=== PATIENT | male | born 1950 | race Caucasian/White ===

== ENCOUNTER 2018-05-15 08:00 | Outpatient (CLI) | payer OTHER ==
[2018-05-15 14:27] LABS: BASOPHILS # (AUTO) 0.1 10^3/uL (0.0-0.1); BASOPHILS % (AUTO) 0.9 %; EOSINOPHILS # (AUTO) 0.6 10^3/uL (0.0-0.7); EOSINOPHILS % (AUTO) 4.9 %; HGB - HEMOGLOBIN 14.2 g/dL (14.0-18.0); LYMPHOCYTES # (AUTO) 2.6 10^3/uL (1.5-3.5); LYMPHOCYTES % (AUTO) 21.4 %; MEAN CORPUSCULAR HEMOGLOBIN 29.8 pg (27.0-31.0); MEAN CORPUSCULAR HGB CONC 33.6 g/dL (32.0-36.0); MEAN CORPUSCULAR VOLUME 88.8 fL (80.0-94.0); MEAN PLATELET VOLUME 9.6 fL (7.4-11.4); MONOCYTES # (AUTO) 1.1 10^3/uL (0.0-1.0); MONOCYTES % (AUTO) 9.5 %; NEUTROPHILS # (AUTO) 7.7 10^3/uL (1.5-6.6); NEUTROPHILS % (AUTO) 63.3 %; PLT - PLATELET COUNT 360 10^3/uL (130-450); RED BLOOD COUNT 4.74 10^6/uL (4.70-6.10); RED CELL DISTRIBUTION WIDTH 12.3 % (12.0-15.0); WHITE BLOOD COUNT 12.1 x10^3/uL (4.8-10.8)
[2018-05-15 14:50] LABS: ALBUMIN 4.3 g/dL (3.2-5.5); ALBUMIN/GLOBULIN RATIO 1.2 (1.0-2.2); ALKALINE PHOSPHATASE 84 IU/L (42-121); ALT ALANINE AMINOTRANSFERASE 21 IU/L (10-60); AST ASPARTATE AMINOTRANSFERASE 23 IU/L (10-42); BILIRUBIN,TOTAL 1.3 mg/dL (0.2-1.0); BUN - BLOOD UREA NITROGEN 27 mg/dL (6-20); CALCIUM 9.4 mg/dL (8.5-10.3); CARBON DIOXIDE - CO2 26 mmol/L (21-32); CHLORIDE 100 mmol/L (101-111); CHOL/HDL RATIO 5.9 (<5.0); CHOLESTEROL 206 mg/dL; CREATININE 1.1 mg/dL (0.6-1.2); GFR - MDRD 67 (>89); GLUCOSE 114 mg/dL (70-100); HDL CHOLESTEROL 35 mg/dL; LDL CHOLESTEROL,CALCULATED 156 mg/dL; LDL/HDL RATIO 4.5 (<3.6); SODIUM 135 mmol/L (135-145); TOTAL PROTEIN 7.8 g/dL (6.7-8.2); VLDL CHOLESTEROL 15 mg/dL
== END 2018-05-15 23:59 ==
LOC: LAB.WCP 08:00
PROVIDERS: ATTEND Family Medicine
DX: I10 Essential (primary) hypertension (principal); R73.9 Hyperglycemia, unspecified; E78.5 Hyperlipidemia, unspecified
CPT/HCPCS: 36415; 80053; 80061; 83721; 84153; 84443; 85025

== ENCOUNTER 2018-05-28 08:31 | Outpatient (CLI) | payer MEDICARE, OTHER ==
[2018-05-28 14:41] LABS: BASOPHILS # (AUTO) 0.1 10^3/uL (0.0-0.1); BASOPHILS % (AUTO) 0.8 %; EOSINOPHILS # (AUTO) 0.8 10^3/uL (0.0-0.7); EOSINOPHILS % (AUTO) 7.4 %; HGB - HEMOGLOBIN 13.4 g/dL (14.0-18.0); LYMPHOCYTES # (AUTO) 2.2 10^3/uL (1.5-3.5); MEAN CORPUSCULAR HGB CONC 33.8 g/dL (32.0-36.0); MEAN CORPUSCULAR VOLUME 88.7 fL (80.0-94.0); MEAN PLATELET VOLUME 9.8 fL (7.4-11.4); MONOCYTES % (AUTO) 9.1 %; NEUTROPHILS # (AUTO) 7.3 10^3/uL (1.5-6.6); NEUTROPHILS % (AUTO) 63.7 %; PLT - PLATELET COUNT 326 10^3/uL (130-450); RED BLOOD COUNT 4.46 10^6/uL (4.70-6.10); RED CELL DISTRIBUTION WIDTH 12.3 % (12.0-15.0); WHITE BLOOD COUNT 11.5 x10^3/uL (4.8-10.8)
== END 2018-05-28 23:59 | disposition home or self-care (01) ==
LOC: LAB.WCP 08:31
PROVIDERS: ATTEND Family Medicine
DX: D72.829 Elevated white blood cell count, unspecified (principal)
CPT/HCPCS: 36415; 85025

== ENCOUNTER 2018-06-08 08:00 | Outpatient (CLI) | payer MEDICARE ==
[2018-06-08 19:11] LABS: BASOPHILS # (AUTO) 0.1 10^3/uL (0.0-0.1); BASOPHILS % (AUTO) 1.1 %; EOSINOPHILS # (AUTO) 0.6 10^3/uL (0.0-0.7); EOSINOPHILS % (AUTO) 5.5 %; HGB - HEMOGLOBIN 13.6 g/dL (14.0-18.0); LYMPHOCYTES # (AUTO) 2.2 10^3/uL (1.5-3.5); LYMPHOCYTES % (AUTO) 21.3 %; MEAN CORPUSCULAR HEMOGLOBIN 29.1 pg (27.0-31.0); MEAN CORPUSCULAR HGB CONC 32.1 g/dL (32.0-36.0); MEAN CORPUSCULAR VOLUME 90.7 fL (80.0-94.0); MEAN PLATELET VOLUME 9.6 fL (7.4-11.4); MONOCYTES % (AUTO) 9.7 %; NEUTROPHILS # (AUTO) 6.6 10^3/uL (1.5-6.6); NEUTROPHILS % (AUTO) 62.4 %; PLT - PLATELET COUNT 372 10^3/uL (130-450); RED BLOOD COUNT 4.67 10^6/uL (4.70-6.10); RED CELL DISTRIBUTION WIDTH 12.8 % (12.0-15.0); WHITE BLOOD COUNT 10.5 x10^3/uL (4.8-10.8)
[2018-06-08 19:25] LABS: BILIRUBIN,URINE NEGATIVE (NEGATIVE); GLUCOSE, URINE (UA) NEGATIVE (NEGATIVE); KETONES,URINE (UA) NEGATIVE (NEGATIVE); LEUKOCYTE ESTERASE, URINE NEGATIVE (NEGATIVE); NITRITE,URINE NEGATIVE (NEGATIVE); OCCULT BLOOD,URINE NEGATIVE (NEGATIVE); PH,URINE 5.5 PH (5.0-7.5); PROTEIN,URINE NEGATIVE (NEGATIVE); UROBILINOGEN,URINE 0.2 (NORMAL) E.U./dL (NORMAL)
[2018-06-08 19:29] LABS: CRP - C-REACTIVE PROTEIN 1.3 mg/dL (0-1.0)
[2018-06-08 19:35] LABS: CLARITY,URINE CLEAR (CLEAR)
[2018-06-08 19:48] LABS: BACTERIA,URINE None Seen /HPF (None Seen); RBC,URINE 0-5 /HPF (0-5); SQUAMOUS EPITHELIAL CELL,UR NONE SEEN (<= Few)
== END 2018-06-08 23:59 | disposition home or self-care (01) ==
LOC: LAB.WCP 08:00
PROVIDERS: ATTEND Family Medicine
DX: M60.9 Myositis, unspecified (principal); G47.9 Sleep disorder, unspecified; R53.83 Other fatigue; D72.829 Elevated white blood cell count, unspecified
CPT/HCPCS: 36415; 81001; 82550; 85025; 85651; 86140; 87086

== ENCOUNTER 2018-09-12 05:16 | Outpatient (CLI) | payer MEDICARE, OTHER | END 2018-09-12 05:17 | disposition short-term general hospital (02) | LOC: EMS 05:16 | PROVIDERS: ATTEND Surgery | DX: R07.2 Precordial pain (principal); R55 Syncope and collapse; R32 Unspecified urinary incontinence; R03.1 Nonspecific low blood-pressure reading | CPT/HCPCS: A0425; A0433 ==

== ENCOUNTER 2018-11-01 09:53 | Outpatient (CLI) | payer MEDICARE, OTHER ==
[2018-11-01 13:02] LABS: BASOPHILS # (AUTO) 0.1 10^3/uL (0.0-0.1); BASOPHILS % (AUTO) 1.3 %; EOSINOPHILS # (AUTO) 0.4 10^3/uL (0.0-0.7); HGB - HEMOGLOBIN 13.4 g/dL (14.0-18.0); LYMPHOCYTES # (AUTO) 2.1 10^3/uL (1.5-3.5); MEAN CORPUSCULAR HEMOGLOBIN 28.8 pg (27.0-31.0); MEAN CORPUSCULAR HGB CONC 32.8 g/dL (32.0-36.0); MEAN CORPUSCULAR VOLUME 87.8 fL (80.0-94.0); MEAN PLATELET VOLUME 9.3 fL (7.4-11.4); MONOCYTES # (AUTO) 0.7 10^3/uL (0.0-1.0); MONOCYTES % (AUTO) 9.8 %; NEUTROPHILS % (AUTO) 54.9 %; PLT - PLATELET COUNT 229 10^3/uL (130-450); RED BLOOD COUNT 4.66 10^6/uL (4.70-6.10); RED CELL DISTRIBUTION WIDTH 14.4 % (12.0-15.0); WHITE BLOOD COUNT 7.3 x10^3/uL (4.8-10.8)
[2018-11-01 13:32] LABS: BUN - BLOOD UREA NITROGEN 21 mg/dL (6-20); CALCIUM 9.5 mg/dL (8.5-10.3); CARBON DIOXIDE - CO2 25 mmol/L (21-32); CHLORIDE 102 mmol/L (101-111); CHOL/HDL RATIO 4.2 (<5.0); CHOLESTEROL 121 mg/dL; GFR - MDRD 75 (>89); GLUCOSE 95 mg/dL (70-100); HDL CHOLESTEROL 29 mg/dL; LDL CHOLESTEROL,CALCULATED 76 mg/dL; LDL/HDL RATIO 2.6 (<3.6); SODIUM 139 mmol/L (135-145); VLDL CHOLESTEROL 16 mg/dL
== END 2018-11-01 23:59 | disposition home or self-care (01) ==
LOC: LAB.WCP 09:53
PROVIDERS: ATTEND Physician Assistant
DX: I25.10 Atherosclerotic heart disease of native coronary artery without angina pectoris (principal)
CPT/HCPCS: 36415; 80048; 80061; 83721; 85025

== ENCOUNTER 2019-02-03 15:02 | Emergency (ER) | payer MEDICARE, OTHER ==
--- NOTE | 2019-02-03 16:43 | ED Physician Documentation ---
PD HPI ABD PAIN - Stated complaint Stated Complaint: ABD PX/CRAMPING - Chief complaint Chief Complaint: Abd Pain - History obtained from History obtained from: Patient - History of Present Illness Timing - onset: Yesterday Timing - duration: Days (2) Timing - details: Abrupt onset, Still present Quality: Sharp, Pain Location: RLQ Improved by: Laying still Worsened by: Moving, Position, Palpation Associated symptoms: No: Nausea, Vomiting, Hematemesis, Diarrhea Similar symptoms before: Diagnosis (inguinal hernia) Recently seen: Not recently seen - Additional information Additional information: 68-year-old male has had a prior hernia repair with mesh on the right side has been doing some excessive physical exertion and he has now had his hernia popped back out yesterday and he indicates that it is been hard and firm and tender. He has had some cramping internally as well. Now that he is laid down in the emergency department his symptoms seem much improved and the mass is less. Review of Systems Constitutional: denies: Fever Eyes: denies: Decreased vision Ears: denies: Ear pain Nose: denies: Congestion Throat: denies: Sore throat Cardiac: denies: Chest pain / pressure Respiratory: denies: Cough GI: reports: Abdominal Pain. denies: Nausea, Vomiting, Diarrhea, Bloody / black stool : denies: Dysuria, Frequency PD PAST MEDICAL HISTORY - Past Medical History Past Medical History: Yes Cardiovascular: Hypertension, [place] Respiratory: None Endocrine/Autoimmune: None GI: None : Nocturia HEENT: None Psych: None Musculoskeletal: Chronic back pain Derm: None - Past Surgical History Ortho: Other Cardiovascular: Coronary stent - Present Medications Home Medications: Ambulatory Orders Medication Instructions Recorded Confirmed Irbesartan/Hydrochlorothiazide 1 each PO 11/10/14 11/10/14 [Irbesartan-Hctz 300-12.5 mg Tb] RX: Simvastatin 40 mg PO DAILY 11/10/14 11/10/14 - Allergies Allergies/Adverse Reactions: Allergies Allergy/AdvReac Type Severity Reaction Status Date / Time Penicillins AdvReac Rash Verified 11/10/14 08:49 - Social History Does the pt smoke?: No Smoking Status: Never smoker PD ED PE NORMAL - Vitals Vital signs reviewed: Yes (normal ) - General General: Alert and oriented X 3, No acute distress, Well developed/nourished - HEENT HEENT: Atraumatic, PERRL, EOMI - Respiratory Respiratory: No respiratory distress - Abdomen Abdomen: Normal bowel sounds, Soft, Non tender, Non distended, No organomegaly - Male Male : Other (There is a hernia mass that is mildly tender and palpable through the scrotum on the right side. The mass is firm and reduces with circumferential pressure and positioning of the body in the supine position. The patient has complete relief. ) - Back Back: No CVA TTP, No spinal TTP - Derm Derm: Normal color, Warm and dry, No rash - Extremities Extremities: No deformity, No edema - Neuro Neuro: Alert and oriented X 3, anesthesia resident 2-12 intact, No motor deficit, No sensory deficit, Normal speech Eye Opening: Spontaneous Motor: Obeys Commands Verbal: Oriented GCS Score: 15 - Psych Psych: Normal mood, Normal affect Results - Vitals Vitals: Vital Signs - 24 hr 02/03/19 02/03/19 15:08 16:52 Temperature 36.6 C 36.7 C Heart Rate 93 76 Respiratory 16 18 Rate Blood Pressure 119/74 109/67 O2 Saturation 98 99 Oxygen O2 Source Room air PD MEDICAL DECISION MAKING - ED course Complexity details: considered differential, d/w patient ED course: 68-year-old male with an incarcerated right inguinal hernia has the hernia reduced fairly easily with body positioning and circumferential pressure. He is taught the process and is thankful for the reduction. Departure - Departure Disposition: 01 Home, Self Care Clinical Impression: Inguinal hernia of right side with obstruction and without gangrene Condition: Stable Instructions: ED Hernia Inguinal Follow-Up: Prakash Jaimes MD [Primary Care Provider] [facility] Group] Discharge Date/Time: 02/03/19 16:53
[2019-02-03 16:53] VITALS: BP 109/67
== END 2019-02-03 16:53 | disposition home or self-care (01) ==
LOC: ED 15:02
DX: K40.30 Unilateral inguinal hernia, with obstruction, without gangrene, not specified as recurrent (principal); I10 Essential (primary) hypertension
CPT/HCPCS: 99282; 99284

== ENCOUNTER 2019-08-23 08:00 | Outpatient (CLI) | payer MEDICARE, OTHER ==
[2019-08-23 13:25] LABS: CHOL/HDL RATIO 3.4 (<5.0); CHOLESTEROL 130 mg/dL; HDL CHOLESTEROL 38 mg/dL; LDL CHOLESTEROL,CALCULATED 75 mg/dL; VLDL CHOLESTEROL 17 mg/dL
== END 2019-08-23 23:59 | disposition home or self-care (01) ==
LOC: LAB.WCP 08:00
PROVIDERS: ATTEND Internal Medicine Cardiovascular Disease
DX: E78.2 Mixed hyperlipidemia (principal)
CPT/HCPCS: 36415; 80061; 83721

== ENCOUNTER 2020-09-11 07:25 | Outpatient (CLI) | payer MEDICARE, OTHER ==
[2020-09-11 12:41] LABS: ALBUMIN 4.1 g/dL (3.2-5.5); ALBUMIN/GLOBULIN RATIO 1.4 (1.0-2.2); ALKALINE PHOSPHATASE 80 IU/L (42-121); ALT ALANINE AMINOTRANSFERASE 30 IU/L (10-60); AST ASPARTATE AMINOTRANSFERASE 27 IU/L (10-42); BUN - BLOOD UREA NITROGEN 22 mg/dL (6-20); CALCIUM 9.6 mg/dL (8.5-10.3); CARBON DIOXIDE - CO2 23 mmol/L (21-32); CHLORIDE 104 mmol/L (101-111); CHOL/HDL RATIO 3.8 (<5.0); CHOLESTEROL 115 mg/dL; GFR - MDRD 74 (>89); GLUCOSE 96 mg/dL (70-100); HDL CHOLESTEROL 30 mg/dL; LDL CHOLESTEROL,CALCULATED 71 mg/dL; LDL/HDL RATIO 2.4 (<3.6); POTASSIUM 4.2 mmol/L (3.5-5.0); SODIUM 137 mmol/L (135-145); TOTAL PROTEIN 7.1 g/dL (6.7-8.2); TRIGLYCERIDES 70 mg/dL; VLDL CHOLESTEROL 14 mg/dL
== END 2020-09-11 23:59 | disposition home or self-care (01) ==
LOC: LAB.WCP 07:25
PROVIDERS: ATTEND Internal Medicine Cardiovascular Disease
DX: I25.10 Atherosclerotic heart disease of native coronary artery without angina pectoris (principal)
CPT/HCPCS: 36415; 80053; 80061; 83721

== ENCOUNTER 2020-09-21 08:00 | Outpatient (CLI) | payer MEDICARE, OTHER ==
[2020-09-21 12:48] LABS: THYROID STIMULATING HORMONE 1.7 uIU/mL (0.34-5.60)
[2020-09-21 12:49] LABS: RHEUMATOID FACTOR NEGATIVE (Negative)
[2020-09-21 12:50] LABS: FREE T3 2.66 pg/mL (2.5-3.9); FREE T4 (FREE THYROXINE) 0.74 ng/dL (0.58-1.64)
[2020-09-24 11:06] LABS: ANA SCREEN NEGATIVE (NEGATIVE)
== END 2020-09-21 23:59 | disposition home or self-care (01) ==
LOC: LAB.WCP 08:00
PROVIDERS: ATTEND Family Medicine
DX: G56.03 Carpal tunnel syndrome, bilateral upper limbs (principal); M60.9 Myositis, unspecified
CPT/HCPCS: 36415; 84439; 84443; 84481; 85651; 86038; 86140; 86430

== ENCOUNTER 2021-01-04 06:09 | Day surgery (SDC) | payer MEDICARE, OTHER ==
[~2021-01-04 06:09] MED LIST: ceFAZolin 2 GM/50 ML 2 GM/50 ML BAG IV ONE
[2021-01-04] MEDS ORDERED: LACTATED RINGERS 1,000 ML IV ONE ×2 (06:57→08:50)
[2021-01-04] MEDS ORDERED: ONDANSETRON 4 MG/2 ML VIAL IVP PRN ×2 (07:04→08:59)
[2021-01-04] MEDS ORDERED: fentaNYL 100 MCG/2 ML VIAL IVP PRN (07:04)
[2021-01-04] MEDS ORDERED: NALOXONE 0.4 MG/ML VIAL IVP PRN (07:04)
[2021-01-04] MEDS ORDERED: HYDROmorphone 0.5 MG/0.5 ML SYRINGE IVP PRN (07:04)
[2021-01-04] MEDS ORDERED: MORPHINE 2 MG/ML CARPUJECT IVP PRN (07:04)
[2021-01-04] MEDS ORDERED: ATROPINE ABBOJECT 1 MG/10 ML SYRINGE IVP PRN (07:04)
[2021-01-04] MEDS ORDERED: PROPOFOL 200 MG/20 ML VIAL IVP ONE (07:05)
[2021-01-04] MEDS ORDERED: MIDAZOLAM 2 MG/2 ML VIAL ONE (07:05)
[2021-01-04] MEDS ORDERED: fentaNYL 100 MCG/2 ML VIAL ONE (07:05)
[2021-01-04] MEDS ORDERED: LIDOCAINE-MPF 2% 5 ML VIAL ONE (07:05)
--- NOTE | 2021-01-04 07:07 | ANESTHESIA ---
Pre-Anesthesia VS, & Labs - Diagnosis Recurrent right inguinal hernia - Procedure right inguinal hernia repair with mesh Vital Signs: Temp Pulse Resp BP Pulse Ox 36.2 C L 74 16 136/80 H 99 01/04/21 06:20 01/04/21 06:20 01/04/21 06:20 01/04/21 06:20 01/04/21 06:20 Height: 5 ft 3 in Weight (kg): 69.3 kg Body Mass Index: 27.0 BMI Classification: Overweight - NPO >8 hours Home Medications and Allergies Home Medications: Ambulatory Orders Aspirin EC [Ecotrin] 81 mg PO DAILY 01/01/21 Atorvastatin Calcium [Lipitor] 80 mg PO DAILY 01/01/21 Metoprolol Tartrate [Lopressor] 37.5 mg PO BID 01/01/21 Prednisone [Jeimy] 8 mg PO DAILY 01/01/21 Tadalafil [Cialis] 5 mg PO DAILY 01/01/21 Timolol 0.5% Ophth Drops [Timoptic 0.5% Ophth Drops] 1 drops RIGHTEYE BID 01/01/21 lisinopriL [Zestril] 5 mg PO DAILY 01/01/21 Aspirin EC [Ecotrin] 81 mg PO DAILY 01/01/21 Atorvastatin Calcium [Lipitor] 80 mg PO DAILY 01/01/21 Metoprolol Tartrate [Lopressor] 37.5 mg PO BID 01/01/21 Prednisone [Jeimy] 8 mg PO DAILY 01/01/21 Tadalafil [Cialis] 5 mg PO DAILY 01/01/21 Timolol 0.5% Ophth Drops [Timoptic 0.5% Ophth Drops] 1 drops RIGHTEYE BID 01/01/21 lisinopriL [Zestril] 5 mg PO DAILY 01/01/21 Allergies/Adverse Reactions: Allergies Allergy/AdvReac Type Severity Reaction Status Date / Time amoxicillin Allergy Rash Verified 12/30/20 12:14 Penicillins Allergy Rash Verified 12/30/20 12:14 Anes History & Medical History - Anesthetic History Anesthesia Complications: reports: No previous complications - Medical History Cardiovascular: reports: Hypertension, High cholesterol, Coronary artery disease, [place] (Stent in [place] 08/2018) Pulmonary: reports: None Gastrointestinal: reports: GERD, Diverticulitis Urinary: reports: None Neuro: reports: None Musculoskeletal: reports: Osteoarthritis, Chronic back pain, Other (polyarthritis rheumatica) Endocrine/Autoimmune: reports: None Blood Disorders: reports: None Skin: reports: None Smoking Status: Never smoker Psychosocial: reports: Alcohol (quit ) History of Cancer?: No - Surgical History General: reports: Colonoscopy Cardiothoracic: reports: Coronary stent Orthopedic: reports: Other Exam General: Alert, Oriented x3, Cooperative, No acute distress Dental: WNL Mouth Openin Fingerbreadth Neck Mobility: Normal Mallampati classification: II Thyromental Distance: 4-6 cm Respiratory: Lungs clear, Normal breath sounds, No respiratory distress, No accessory muscle use Cardiovascular: Regular rate, Normal S1, Normal S2, No murmurs Mental/Cognitive Status: Alert/Oriented X3, Normal for patient Plan Anesthesia Type: General Consent for Procedure(s) Verified and Reviewed: Yes Code Status: Attempt Resuscitation ASA classification: 3-Severe systemic disease Is this case an emergency?: No
[2021-01-04] MEDS ORDERED: ceFAZolin 1 GM VIAL ONE (07:22)
[2021-01-04] MEDS ORDERED: SODIUM CHLORIDE 0.9% 10 ML VIAL IVP ONE (07:22)
[2021-01-04] MEDS ORDERED: BUPIVACAINE 0.5% PF 30 ML VIAL ONE (07:23)
[2021-01-04] MEDS ORDERED: LIDOCAINE 2%-EPI 1:100000 20 ML MDV ONE (07:23)
[2021-01-04] MEDS ORDERED: LACTATED RINGERS 1,000 ML IV SCH (08:00)
[2021-01-04] MEDS ORDERED: ONDANSETRON 4 MG/2 ML VIAL ONE (08:04)
[2021-01-04] MEDS ORDERED: DEXAMETHASONE 4 MG/ML VIAL ONE (08:04)
[2021-01-04] MEDS ORDERED: LIDOCAINE 2%-EPI 1:100000 20 ML MDV SUBQ ONE (08:13)
[2021-01-04] MEDS ORDERED: BUPIVACAINE 0.5% PF 30 ML VIAL INFIL ONE (08:14)
[2021-01-04] MEDS ORDERED: ceFAZolin 1 GM VIAL IR ONE (08:14)
[2021-01-04] MEDS ORDERED: ePHEDrine 50 MG/ML VIAL IVP ONE (08:18)
[2021-01-04] MEDS ORDERED: KETOROLAC 30 MG/ML VIAL ONE (08:40)
--- NOTE | 2021-01-04 08:58 | OPERATIVE REPORT ---
Operative Report - General Procedure Date: 01/04/21 Planned Procedure: Repair of recurrent right inguinal hernia Pre-Op Diagnosis: Large recurrent right inguinal hernia Procedure Performed: Repair of recurrent right inguinal hernia Post Op Diagnosis: Same - Procedure Note Primary Surgeon: Sri Anesthesia Provider: BÁRBARA Guevara Anesthesia Technique: General LMA Pathology: None Estimated Blood Loss (mL): 5 Findings: Large pantaloon recurrence with obliteration of the floor and normal fascial planes Complications: None apparent - Other Other Information/Narrative: After obtaining informed consent, the patient is brought to the operating room and placed in the supine position on the operating table. Following successful induction of general endotracheal anesthesia, appropriate padding of all bony prominences, and placement of appropriate monitors, the abdomen was prepped and draped in the standard surgical fashion. A timeout was held per scope protocol. All elements of the surgical safety checklist were followed before, during, and after the procedure. We began the procedure by infiltrating a mixture of local anesthetics medial to the anterior superior iliac spine on the right. This was done to create an ileal inguinal nerve block. We then selected a site for an incision in the right lower quadrant just superior and lateral to the right pubic tubercle. Th is area was anesthetized with additional local anesthetic and an incision was created here.The incision was carried down through the skin and subcutaneous tissue to reveal A large hernia sac. The fascia of the aponeurosis was absent and the spermatic cord was in the subcutaneous space along with hernia sac. The ilioinguinal nerve was immediately identified. Due to the significant amount of pain in the preoperative setting, we elected to sacrifice this nerve. This was done by clamping and tying the superior and inferior segments and removing the central portion. The more superior segment was then tucked into the rectus muscle medially. We continued by identifying the spermatic cord and gently encircling it with a Carson drain. The hernia sac was carefully dissected free from the cord structures and was noted to have two components - both medial and lateral to the epigastric vessels - therefore a pantaloon hernia. We carefully dissected the spermatic cord from the sacs. The hernia sacs were then placed back into the abdominal cavity. We elected to repair the indirect hernia with a large Prolene hernia system mesh implant. This was dipped in Ancef containing solution and then deployed into the defect. The posterior leaflet was straightened and flattened in the preperitoneal space. The anterior leaflet was then nicked medially to provide a place for the spermatic cord and then closed with a Prolene suture. The more inferior aspect was then sewn to Vinay's ligament medially. Laterally it was tucked under the external beak aponeurosis. The direct element was addressed with the single piece of mesh. Further evaluation revealed it to be fully covered by the posterior leaflet with no remaining hernia defect.The edges of the external beak aponeurosis were then i dentified medial and lateral to the wound. They were dissected free from surrounding structures. This layer was then closed with running Vicryl suture. Edel's fascia was closed with Vicryl suture and Monocryl stitches were placed in the skin. All sponge, needle, and instrument counts were correct at the conclusion of the case. The patient was allowed awaken from anesthesia without difficulty and taken to the postanesthesia care unit in good condition.
[2021-01-04] MEDS ORDERED: ACETAMINOPHEN 325 MG TABLET PO PRN (08:59)
[2021-01-04] MEDS ORDERED: IBUPROFEN 600 MG TABLET PO PRN (08:59)
[2021-01-04] MEDS ORDERED: oxyCODONE 5 MG TABLET PO PRN (08:59)
[2021-01-04 10:54] VITALS: BP 99/73
--- NOTE | 2021-01-04 11:01 | ANESTHESIA POST OP EVALUATION ---
Anesthesia Post Eval - Post Anesthesia Eval Vitals: Last Vital Signs Temp 36.4 C L 01/04/21 10:52 Pulse 94 01/04/21 10:52 Resp 12 01/04/21 10:52 BP 99/73 01/04/21 10:52 Pulse Ox 97 01/04/21 10:52 CV Function Including HR & BP: Stable Pain Control: Satisfactory Nausea & Vomiting: Negative Mental Status: Baseline Respiratory Status: Airway Patent Hydration Status: Satisfactory Anesthesia Complications: None
== END 2021-01-04 06:10 | disposition home or self-care (01) ==
LOC: SDS 06:09
PROVIDERS: ATTEND Surgery
DX: K40.91 Unilateral inguinal hernia, without obstruction or gangrene, recurrent (principal); I25.10 Atherosclerotic heart disease of native coronary artery without angina pectoris; I25.2 Old myocardial infarction
CPT/HCPCS: 49520; C1781; J0690; J7120

== ENCOUNTER 2021-09-22 14:17 | Outpatient (CLI) | payer MEDICARE, OTHER ==
--- NOTE | 2021-09-22 16:26 | DEXA Report ---
PROCEDURE: Dexa Spine and/or Hip INDICATIONS: OSTEOPOROSIS TECHNIQUE: Dual energy x-ray absorptiometry (DXA) was performed on a Udex System. Regions measur ed are the AP Spine, femoral neck, and if needed forearm. COMPARISON: None. FINDINGS: Lumbar Spine: Bone Mineral Density 1.152 g/cm/cm,T score -0.6, normal. Left Hip: Bone Mineral Density 1.019 g/cm/cm,T score -0.6, normal. Left Femoral Neck: Bone Mineral Density 0.851 g/cm/cm, T score -1.7, osteopenic. (T score greater or equal to -1.0: NORMAL) (T score from -1.1 to -2.4: OSTEOPENIA) (T score less than or equal to -2.5 to: OSTEOPOROSIS) Impression: Based on WHO criteria, the patient is osteopenic. Patients with diagnosis of osteoporosis or osteopenia should have regular bone mineral density assess ment. For those eligible for Medicare, routine testing is allowed once every 2 years. Testing frequ ency can be increased for patients who have rapidly progressing disease or for those who are receivin g medical therapy to restore bone mass. Reviewed by: Yung Medrano MD on 09/22/2021 4:25 PM PDT Approved by: Yung Medrano MD on 09/22/2021 4:25 PM PDT Station ID: [id number]
== END 2021-09-22 14:18 | disposition home or self-care (01) ==
LOC: DI 14:17
PROVIDERS: ATTEND Internal Medicine Rheumatology
DX: M85.88 Other specified disorders of bone density and structure, other site (principal)

== ENCOUNTER 2023-02-22 06:01 | Outpatient (CLI) | payer MEDICARE, OTHER ==
[2023-02-22 06:25] LABS: BASOPHILS % (AUTO) 0.4 %; EOSINOPHILS % (AUTO) 0.2 %; HCT - HEMATOCRIT 40.5 % (42.0-52.0); HGB - HEMOGLOBIN 13.2 g/dL (14.0-18.0); LYMPHOCYTES % (AUTO) 35.4 %; MEAN CORPUSCULAR HGB CONC 32.6 g/dL (32.0-36.0); MEAN CORPUSCULAR VOLUME 98.1 fL (80.0-94.0); MONOCYTES % (AUTO) 20.4 %; NEUTROPHILS % (AUTO) 41.8 %; RED BLOOD COUNT 4.13 10^6/uL (4.70-6.10); RED CELL DISTRIBUTION WIDTH 13.9 % (12.0-15.0); WHITE BLOOD COUNT 8.3 x10^3/uL (4.8-10.8)
[2023-02-22 06:49] LABS: PLT - PLATELET COUNT 132 10^3/uL (130-450)
[2023-02-22 06:50] LABS: ABNORMAL LYMPHS % (MANUAL) 0 %; MEAN PLATELET VOLUME 11.5 fL (7.4-11.4)
[2023-02-22 07:20] LABS: ALBUMIN 4.3 g/dL (3.2-5.5); ALBUMIN/GLOBULIN RATIO 1.7 (1.0-2.2); BILIRUBIN,TOTAL 0.6 mg/dL (0.2-1.0); CALCIUM 9.6 mg/dL (8.5-10.3); CREATININE 1.2 mg/dL (0.6-1.3); CRP - C-REACTIVE PROTEIN 0.6 mg/dL (<0.5); POTASSIUM 3.9 mmol/L (3.5-4.5); TOTAL PROTEIN 6.8 g/dL (6.4-8.9)
[2023-02-22 07:35] LABS: THYROID STIMULATING HORMONE 1.88 uIU/mL (0.34-5.60)
[2023-02-22 07:37] LABS: BAND NEUTROPHILS % (MANUAL) 3 %; DIFFERENTIAL COMMENT MANUAL DIFFERENTIAL; EOSINOPHILS # (MANUAL) 0.2 10^3/uL (0-0.7); LYMPHOCYTES % (MANUAL) 19 %; MONOCYTES # (MANUAL) 1.3 10^3/uL (0.0-1.0); MYELOCYTES % (MANUAL) 1 %; NEUTROPHILS # (MANUAL) 3.7 10^3/uL (1.5-6.6); REACTIVE LYMPHS % (MANUAL) 17 %
[2023-02-22 07:57] LABS: RHEUMATOID FACTOR NEGATIVE (Negative)
[2023-02-23 16:08] LABS: ANTI-DNA (DS) AB QN <1 IU/mL (0-9); CENTROMERE B ANTIBODIES <0.2 AI (0.0-0.9); CHROMATIN ANTIBODIES 0.2 AI (0.0-0.9); JO-1 AB <0.2 AI (0.0-0.9); RIBOSOMAL P ANTIBODIES <0.2 AI (0.0-0.9); RNP ANTIBODIES <0.2 AI (0.0-0.9); SCLERODERMA-70 ANTIBODIES <0.2 AI (0.0-0.9); SJOGREN'S ANTI-SS-A <0.2 AI (0.0-0.9); SJOGREN'S ANTI-SS-B <0.2 AI (0.0-0.9); SMITH ANTIBODIES <0.2 AI (0.0-0.9); SMITH/RNP ANTIBODIES <0.2 AI (0.0-0.9)
[2023-02-24 20:07] LABS: CYCLIC CITRULLINATED PEP IGG/A 0 units (0-19)
== END 2023-02-22 06:02 | disposition home or self-care (01) ==
LOC: LAB 06:01
PROVIDERS: ATTEND Internal Medicine Rheumatology
DX: M25.50 Pain in unspecified joint (principal); M35.3 Polymyalgia rheumatica
CPT/HCPCS: 36415; 80053; 82550; 83516; 84443; 85025; 85651; 86140; 86200; 86225; 86235; 86430

== ENCOUNTER 2023-06-02 06:02 | Emergency (ER) | payer MEDICARE, OTHER ==
[2023-06-02 06:47] VITALS: BP 142/81; O2SAT 99
[2023-06-02] MEDS ORDERED: DEXAMETHASONE 10 MG/ML VIAL PO STA (06:50)
[2023-06-02] MEDS ORDERED: FAMOTIDINE 20 MG TABLET PO STA (06:50)
[2023-06-02] MEDS ORDERED: diphenhydrAMINE 25 MG CAPSULE PO STA (06:50)
[2023-06-02] MEDS ORDERED: CHERRY SYRUP 10 ML UDC PO ONE (06:50)
--- NOTE | 2023-06-02 06:54 | ED Physician Documentation ---
History of Present Illness - Stated complaint Stated Complaint: RASH - Chief complaint Chief Complaint: General - History obtained from History obtained from: Patient - Additonal information Additional information: 72yM with pmh polymyalgia rheumatica p/w pruritic rash to face, neck trunk and back starting early this morning without known inciting cause. denies throat tightness, soa, cp, n/v dizziness. denies allergen exposure or recent travel or viral illness PD PAST MEDICAL HISTORY - Past Medical History Past Medical History: Yes Cardiovascular: Hypertension, High cholesterol, Coronary artery disease, [place] Respiratory: None Neuro: None Endocrine/Autoimmune: None GI: GERD, Diverticulitis : None HEENT: Chronic vision loss, Chronic hearing loss Psych: None Musculoskeletal: Osteoarthritis, Chronic back pain, Other Derm: None - Past Surgical History Past Surgical History: Yes General: Colonoscopy Ortho: Other Cardiovascular: Coronary stent - Present Medications Home Medications: Ambulatory Orders Medication Instructions Recorded Confirmed Aspirin EC [Ecotrin] 81 mg PO DAILY 01/01/21 01/04/21 Atorvastatin Calcium [Lipitor] 80 mg PO DAILY 01/01/21 01/04/21 Metoprolol Tartrate [Lopressor] 37.5 mg PO BID 01/01/21 06/02/23 Prednisone [Jeimy] 7 mg PO DAILY 01/01/21 06/02/23 Tadalafil [Cialis] 5 mg PO DAILY 01/01/21 01/04/21 Timolol 0.5% Ophth Drops [Timoptic 1 drops RIGHTEYE BID 01/01/21 01/04/21 0.5% Ophth Drops] lisinopriL [Zestril] 5 mg PO DAILY 01/01/21 06/02/23 Docusate Sodium 250Mg Capsule 250 mg PO DAILY #30 cap 01/04/21 [Colace 250Mg Capsule] Ondansetron Odt [Zofran Odt] 4 mg TL Q6H PRN #10 tablet 01/04/21 oxyCODONE [Roxicodone] 5 mg PO Q6H PRN #20 tablet 01/04/21 traMADol [Ultram] 50 - 100 mg PO Q6H PRN #40 tablet 01/07/21 Atorvastatin [Lipitor] 80 mg PO DAILY 06/02/23 06/02/23 Hydroxychloroquine [Plaquenil] 200 mg PO DAILY 06/02/23 06/02/23 Omeprazole 40 mg PO DAILY 06/02/23 06/02/23 - Allergies Allergies/Adverse Reactions: Allergies Allergy/AdvReac Type Severity Reaction Status Date / Time amoxicillin Allergy Rash Verified 06/02/23 06:42 Penicillins Allergy Rash Verified 06/02/23 06:42 - Social History Does the pt smoke?: No Smoking Status: Never smoker PD ED PE NORMAL - Vitals Vital signs reviewed: Yes - General General: Alert and oriented X 3, No acute distress, Well developed/nourished - HEENT HEENT: Atraumatic, PERRL, EOMI - Neck Neck: Supple, no meningeal sign - Derm Derm: Other (erythema to face, neck, trunk and back) Results - Vitals Vitals: Vital Signs - 24 hr 06/02/23 06:33 Temperature 36.8 C Heart Rate 89 Respiratory 18 Rate Blood Pressure 142/81 H O2 Saturation 99 Oxygen O2 Source Room air PD Medical Decision Making - ED course ED course: 72yM presents with pruritic rash to face, trunk, back and neck starting early this morning without known cause. oral benadryl, decadron, pepcid administered with improvement. plan to f/u with pcp for referral to allergy/immunology as needed. return precautions given. Departure - Departure Disposition: 01 Home, Self Care Clinical Impression: Rash Condition: Stable Instructions: ED Erythema Comments: You were seen in the emergency department for rash and received benadryl, decadron and pepcid. Please follow-up with your primary care provider for referral to allergy/immunology and return to the emergency department if you have any new or worsening symptoms or other concerns.
== END 2023-06-02 07:09 | disposition home or self-care (01) ==
LOC: ED 06:02
DX: R21 Rash and other nonspecific skin eruption (principal); I10 Essential (primary) hypertension
CPT/HCPCS: 99282; 99283; A9270

== ENCOUNTER 2023-09-27 07:40 | Outpatient (CLI) | payer MEDICARE, OTHER ==
[2023-09-27 07:52] LABS: BASOPHILS # (AUTO) 0.1 10^3/uL (0.0-0.1); BASOPHILS % (AUTO) 0.8 %; EOSINOPHILS % (AUTO) 0.3 %; HCT - HEMATOCRIT 42.5 % (42.0-52.0); HGB - HEMOGLOBIN 13.2 g/dL (14.0-18.0); LYMPHOCYTES # (AUTO) 3.3 10^3/uL (1.5-3.5); LYMPHOCYTES % (AUTO) 34.2 %; MEAN CORPUSCULAR HEMOGLOBIN 30.6 pg (27.0-31.0); MEAN CORPUSCULAR HGB CONC 31.1 g/dL (32.0-36.0); MEAN CORPUSCULAR VOLUME 98.6 fL (80.0-94.0); MEAN PLATELET VOLUME 9.8 fL (7.4-11.4); MONOCYTES # (AUTO) 1.6 10^3/uL (0.0-1.0); NEUTROPHILS % (AUTO) 42.3 %; PLT - PLATELET COUNT 329 10^3/uL (130-450); RED BLOOD COUNT 4.31 10^6/uL (4.70-6.10); RED CELL DISTRIBUTION WIDTH 13.2 % (12.0-15.0); WHITE BLOOD COUNT 9.5 x10^3/uL (4.8-10.8)
[2023-09-27 07:58] LABS: SLIDE REVIEW? Indicated
[2023-09-27 08:06] LABS: ALBUMIN 3.9 g/dL (3.2-5.5); ALBUMIN/GLOBULIN RATIO 1.2 (1.0-2.2); BILIRUBIN,TOTAL 0.6 mg/dL (0.2-1.0); CALCIUM 9.6 mg/dL (8.5-10.3); CREATININE 1.2 mg/dL (0.6-1.3); TOTAL PROTEIN 7.2 g/dL (6.4-8.9)
[2023-09-27 08:14] LABS: RBC MORPHOLOGY (MULTIPLE) 2+ ANISOCYTOSIS (NORMAL)
[2023-09-27 08:22] LABS: THYROID STIMULATING HORMONE 2.01 uIU/mL (0.34-5.60)
== END 2023-09-27 07:41 | disposition home or self-care (01) ==
LOC: LAB 07:40
PROVIDERS: ATTEND Family Medicine
DX: R68.82 Decreased libido (principal); R53.83 Other fatigue; N52.9 Male erectile dysfunction, unspecified
CPT/HCPCS: 36415; 80053; 84403; 84439; 84443; 84481; 85025

== ENCOUNTER 2023-10-06 08:41 | Outpatient (CLI) | payer MEDICARE, OTHER ==
--- NOTE | 2023-10-06 10:18 | CT Report ---
PROCEDURE: Head WO INDICATIONS: HEADACHE TECHNIQUE: Noncontrast 4.5 mm thick angled axial sections acquired from the foramen magnum to the vertex. For r adiation dose reduction, the following was used: automated exposure control, adjustment of mA and/or kV according to patient size. COMPARISON: None. FINDINGS: Image quality: Excellent. CSF spaces: Basal cisterns are patent. No extra-axial fluid collections. Ventricles are normal in size and shape. Brain: No midline shift. No intracranial masses or hemorrhage. Age-related global volume loss and chronic microvascular ischemic changes. Intracranial atherosclerotic vascular calcifications. Fung-w fanta matter interface is normal. Skull and face: Calvarium and visualized facial bones are intact, without suspicious lesions. Sinuses: Mild maxillary sinus mucosal thickening. The paranasal sinuses are otherwise clear. Left ma stoid effusion. The right mastoid air cells are clear. IMPRESSION: 1.No cause for patient's symptoms is identified. No acute intracranial pathology. 2.Left mastoid effusion. Reviewed by: Odilon Khan MD on 10/06/2023 10:17 AM PDT Approved by: Odilon Khan MD on 10/06/2023 10:17 AM PDT Station ID: [id number]
== END 2023-10-06 08:42 | disposition home or self-care (01) ==
LOC: DI 08:41
PROVIDERS: ATTEND Family Medicine
DX: R51.9 Headache, unspecified (principal); H74.8X2 Other specified disorders of left middle ear and mastoid